=== PATIENT | female | born 1965 | race Caucasian/White ===

== ENCOUNTER 2016-10-02 07:40 | Emergency (ER) | payer OTHER ==
[~2016-10-02] VITALS: Ht 177.8 cm; Wt 113.4 kg
[2016-10-02] MEDS ORDERED: ABIL15TA2 PO (07:53)
[2016-10-02] MEDS ORDERED: METH10TA2 PO (07:53)
[2016-10-02] MEDS ORDERED: PROM25TA GT (07:53)
[2016-10-02] MEDS ORDERED: CITA40TA4 PO (07:53)
[2016-10-02] MEDS ORDERED: NEOSPORIN TOP OINT 15GM TOP ONE (09:00)
[2016-10-02] MEDS ORDERED: TETANUS/DIPHTHERIA TOX ADSORB ADULT 0.5ML SYR/VIAL (90714) IM ONE (09:00)
--- NOTE | 2016-10-02 09:25 | REP ---
Clinical: Trauma. Technique: Frontal view of the pelvis with neutral and frog lateral views of the left hip. Findings: Normal age related changes are appreciated. Evidence for prior surgical repair with small plugs identified at the bilateral symphysis pubis. No acute fracture or dislocation. Impression: Age-related changes. No acute fracture dislocation. Signed by Taye Ingram MD 10/02/2016 09:17 A
--- NOTE | 2016-10-02 09:29 | REP ---
Clinical: Trauma. Technique: AP and frog lateral views of the left femur in conjunction with left hip series. Findings: The femur is intact and there is no evidence for acute fracture or dislocation. Age-related degenerative changes at the hip and knee joint noted. Surrounding soft tissues are unremarkable. Impression: No acute femur fracture or dislocation. Signed by Taye Ingram MD 10/02/2016 09:21 A
[2016-10-02] MEDS ORDERED: ADACEL/BOOSTRIX VACCINE (DIPHTH/PERTUSS/ACELL/TETANUS)0.5ML SYR (90715) IM ONE (10:00)
[2016-10-02 10:11] VITALS: BP 118/68
[2016-10-02] MEDS ORDERED: MOBI7.5T10 PO (10:22)
[2016-10-02] MEDS ORDERED: ZANA4TAB PO (10:22)
[2016-10-02] MEDS: NAPROXEN 250 MG TAB PO ONE ×2 (10:30→10:33)
== END 2016-10-02 10:45 | disposition home or self-care (01) ==
LOC: M ED 08:29
DX: T14.8 Other injury of unspecified body region (principal); M79.605 Pain in left leg; M25.552 Pain in left hip; Y92.099 Unspecified place in other non-institutional residence as the place of occurrence of the external cause; Y93.9 Activity, unspecified; W10.9XXA Fall (on) (from) unspecified stairs and steps, initial encounter; Y99.9 Unspecified external cause status; F17.200 Nicotine dependence, unspecified, uncomplicated; Z79.899 Other long term (current) drug therapy

== ENCOUNTER → 2017-05-07 | Outpatient (CLI) | payer OTHER ==
[2017-05-07 16:55] LABS: BASO # 0.1 10^3/uL (0.0-0.2); BASO % 0.8 % (0.0-1.0); EOS # 0.1 10^3/uL (0.0-0.50); EOS % 0.4 % (0.0-3.0); IMMATURE GRANULOCYTE # 0.1 10^3/uL (0-0); IMMATURE GRANULOCYTE % 0.4 % (0-0); LYMPH # 2.6 10^3/uL (1.5-4.5); LYMPH % 19.4 % (24.0-44.0); MEAN CORPUSCULAR HEMOGLOBIN 29.7 pg (27.0-33.0); MEAN CORPUSCULAR HGB CONC 33.3 g/dl (32.0-36.5); MEAN CORPUSCULAR VOLUME 89.3 fl (80.0-96.0); MONO # 0.7 10^3/uL (0.0-0.8); MONO % 5.2 % (0.0-5.0); NEUTROPHILS # 9.8 10^3/uL (1.8-7.7); NEUTROPHILS % 73.8 % (36.0-66.0); PLATELET COUNT, AUTOMATED 396 10^3/uL (150-450); RED CELL DISTRIBUTION WIDTH 14.7 % (11.5-14.5); WHITE BLOOD COUNT 13.3 10^3/uL (4.0-10.0)
[2017-05-07 17:15] LABS: ALBUMIN/GLOBULIN RATIO 0.98 (1.00-1.93); ALKALINE PHOSPHATASE 109 U/L (45-117); ALT/SGPT 19 U/L (12-78); AMYLASE 47 U/L (25-115); ANION GAP 6 MEQ/L (8-16); AST/SGOT 13 U/L (7-37); BILIRUBIN,TOTAL 0.3 MG/DL (0.2-1.0); BLOOD UREA NITROGEN 11 MG/DL (7-18); CALCIUM LEVEL 9.4 MG/DL (8.5-10.1); CARBON DIOXIDE LEVEL 26 MEQ/L (21-32); CHLORIDE LEVEL 108 MEQ/L (98-107); CREATININE FOR GFR 0.95 MG/DL (0.55-1.02); GLOMERULAR FILTRATION RATE > 60.0 (>51); GLUCOSE, FASTING 94 MG/DL (70-105); SODIUM LEVEL 140 MEQ/L (136-145); TOTAL PROTEIN 8.1 GM/DL (6.4-8.2)
== END ==
LOC: M WUC 12:39
DX: R10.12 Left upper quadrant pain (principal)